=== PATIENT | male | born 1990 | race Caucasian/White ===

== ENCOUNTER 2017-10-03 18:22 | Emergency (ER) | payer BC, OTHER ==
--- NOTE | 2017-10-03 18:46 | ER Document Report ---
ED Medical Screen (RME) - General Chief Complaint: Leg Swelling Stated Complaint: SWOLLEN ANKLE Time Seen by Provider: 10/03/17 18:38 Notes: RME DISCLOSURE I have seen this patient as part of a Rapid Medical Evaluation and, if applicable, placed any initially appropriate orders. The patient will be seen and fully evaluated, including a full history and physical exam, by a provider ( in Main ED or Fast Track) when a room becomes available. 26-year-old male here with complaints of right foot ankle and calf swelling. He was seen in [place] for this and sent here for an ultrasound to rule out DVT. He has no prior history of DVT/PE or family history of same. Denies recent airplane travel or long car rides. Denies prior history of cancer. TRAVEL OUTSIDE OF THE [place] IN LAST 30 DAYS: No - Related Data Allergies/Adverse Reactions: No Known Allergies Allergy (Unverified 10/03/17 18:24) Physical Exam - Vital signs Vitals: Temp Pulse Resp BP Pulse Ox 97.9 F 80 14 146/79 H 98 10/03/17 18:29 10/03/17 18:29 10/03/17 18:29 10/03/17 18:29 10/03/17 18:29 Course - Vital Signs Vital signs: Temp Pulse Resp BP Pulse Ox 97.9 F 80 14 146/79 H 98 10/03/17 18:29 10/03/17 18:29 10/03/17 18:29 10/03/17 18:29 10/03/17 18:29
[2017-10-03 19:19] LABS: ABSOLUTE EOSINOPHILS # (AUTO) 0.1 10^3/uL (0.0-0.6); ABSOLUTE MONOCYTES (AUTO) 0.5 10^3/uL (0.1-1.4); HEMOGLOBIN 13.9 g/dL (13.5-17.0); TOTAL CELLS COUNTED % (AUTO) 100 %
[2017-10-03 19:22] LABS: ABSOLUTE NEUT (AUTO) 2.9 10^3/uL (1.7-8.2); BASOPHILS % (AUTO) 0.7 % (0-2); EOSINOPHILS % (AUTO) 2.1 % (0-6); HEMATOCRIT 41.3 % (37.9-51.0); LYMPHOCYTES % (AUTO) 22.1 % (13-45); MEAN CORPUSCULAR HGB CONC 33.7 g/dL (32.0-36.0); MEAN CORPUSCULAR VOLUME 83 fl (80-97); MONOCYTES % (AUTO) 10.2 % (3-13); PLATELET COUNT 331 10^3/uL (150-450); RED BLOOD COUNT 4.98 10^6/uL (4.35-5.55); RED CELL DISTRIBUTION WIDTH 13.8 % (11.5-14.0); SEGMENTED NEUTROPHILS % (AUTO) 64.9 % (42-78); WHITE BLOOD COUNT 4.5 10^3/uL (4.0-10.5)
[2017-10-03 19:37] LABS: ANION GAP 10 (5-19); BLOOD UREA NITROGEN 9 mg/dL (7-20); CALCIUM 9.7 mg/dL (8.4-10.2); CARBON DIOXIDE 27 mmol/L (22-30); CHLORIDE 103 mmol/L (98-107); GLUCOSE 95 mg/dL (75-110); POTASSIUM 4.2 mmol/L (3.6-5.0); SODIUM 140.2 mmol/L (137-145)
--- NOTE | 2017-10-03 20:36 | RADIOLOGY REPORT (SQ) ---
EXAM DESCRIPTION: VENOUS UNILATERAL LOWER COMPLETED DATE/TIME: 10/03/2017 8:25 pm REASON FOR STUDY: RLE swelling; eval DVT COMPARISON: None. TECHNIQUE: Dynamic and static hayes scale and color images acquired of the right leg venous system. S elected spectral images acquired with additional compression and augmentation maneuvers. The contrala teral common femoral vein and saphenofemoral junction were also imaged. Images stored on PACS. LIMITATIONS: None. FINDINGS: COMMON FEMORAL: Normal phasicity, compression and augmentation. No visualized echogenic ma terial on hayes scale. No defects on color images. FEMORAL: Normal compression and augmentation. No visualized echogenic material on hayes scale. No defe cts on color images. POPLITEAL: Normal compression, augmentation. No visualized echogenic material on hayes scale. No defec ts on color images. CALF VESSELS: Normal compression, augmentation. No visualized echogenic material on hayes scale. No de fects on color images. GSV and SSV: Normal compression, augmentation. No visualized echogenic material on hayes scale. No def ects on color images. ANY DEEP VENOUS INSUFFICIENCY: Not evaluated. ANY EVIDENCE OF POPLITEAL CYST: No. OTHER: No other significant finding. CONTRALATERAL COMMON FEMORAL VEIN AND SAPHENOFEMORAL JUNCTION: Normal phasicity, compression and augmentation. No visualized echogenic material on hayes scale. No de fects on color images. IMPRESSION: NO EVIDENCE DVT OR SVT IN THE RIGHT LEG. TECHNICAL DOCUMENTATION: JOB ID: [id number] [employer]- All Rights Reserved Reading location - IP/workstation name: [email or web address]
--- NOTE | 2017-10-03 20:48 | ER Document Report ---
ED Extremity Problem, Lower - General Chief Complaint: Leg Swelling Stated Complaint: SWOLLEN ANKLE Time Seen by Provider: 10/03/17 18:38 Mode of Arrival: Ambulatory Information source: Patient Notes: Patient is a 26-year-old male who presents with complaints of right ankle and right calf swelling 1 week. Patient states that he does have pain in his right lower extremity however the pain only occurs after working a 10 hour shift on his feet. Patient denies any recent travel, chest pain or shortness of breath. Denies any history of DVT or PE and denies any family history of any blood clots. Patient reports a medical history of rheumatoid arthritis for which he was recently started on methotrexate and symphony. TRAVEL OUTSIDE OF THE [place] IN LAST 30 DAYS: No - Related Data Allergies/Adverse Reactions: No Known Allergies Allergy (Unverified 10/03/17 18:24) Past Medical History - Social History Smoking Status: Current Every Day Smoker Chew tobacco use (# tins/day): No Frequency of alcohol use: None Drug Abuse: Marijuana Lives with: Family Family History: Reviewed & Not Pertinent Patient has suicidal ideation: No Patient has homicidal ideation: No Pulmonary Medical History: Reports: Hx Asthma - as a child Renal/ Medical History: Denies: Hx Peritoneal Dialysis Musculoskeltal Medical History: Reports Other - Rhumatoid arthritis Psychiatric Medical History: Reports: None Review of Systems - Review of Systems Constitutional: No symptoms reported EENT: No symptoms reported Cardiovascular: No symptoms reported Respiratory: No symptoms reported Gastrointestinal: No symptoms reported Genitourinary: No symptoms reported Male Genitourinary: No symptoms reported Musculoskeletal: See HPI, Leg swelling - Left, Ankle swelling - Left Skin: No symptoms reported Hematologic/Lymphatic: No symptoms reported Neurological/Psychological: No symptoms reported Physical Exam - Vital signs Vitals: Temp Pulse BP Pulse Ox 97.9 F 82 146/79 H 98 10/03/17 18:28 10/03/17 18:28 10/03/17 18:28 10/03/17 18:28 - Notes Notes: PHYSICAL EXAMINATION: GENERAL: Well-appearing, well-nourished and in no acute distress. HEAD: Atraumatic, normocephalic. EYES: Pupils equal round and reactive to light, extraocular movements intact, sclera anicteric, conjunctiva are normal. ENT: Nares patent, oropharynx clear without exudates. Moist mucous membranes. NECK: Normal range of motion, supple without lymphadenopathy LUNGS: Breath sounds clear to auscultation bilaterally and equal. No wheezes rales or rhonchi. HEART: Regular rate and rhythm without murmurs ABDOMEN: Soft, nontender, nondistended abdomen. No guarding, no rebound. No masses appreciated. Musculoskeletal: Normal range of motion, non-pitting edema to left lower extremity from foot to knee. Dorsalis pedis and anterior tibialis pulses present. No erythema, no warmth. No cyanosis. NEUROLOGICAL: Cranial nerves grossly intact. Normal speech, normal gait. Normal sensory, motor exams PSYCH: Normal mood, normal affect. SKIN: Warm, Dry, normal turgor, no rashes or lesions noted. Course - Re-evaluation Re-evalutation: Venous Doppler ordered by [facility] provider is negative for any deep vein thrombosis. Patient will follow up with primary care provider, Dr. Petty, in 1- 2 weeks. Instructed patient that if symptoms persist it may be necessary to have a repeat venous Doppler in approximately 2 weeks. Patient patient given strict return precautions to the emergency department to include chest pain, shortness of breath, increased right leg pain, swelling, erythema or temperature change to the lower extremity. - Vital Signs Vital signs: Temp Pulse Resp BP Pulse Ox 99.1 F 64 14 131/72 H 100 10/03/17 21:04 10/03/17 21:04 10/03/17 18:29 10/03/17 21:04 10/03/17 21:04 - Laboratory Result Diagrams: 10/03/17 19:02 10/03/17 19:02 Discharge - Discharge Clinical Impression: Swelling of right lower extremity Condition: Stable Disposition: HOME, SELF-CARE Additional Instructions: The venous doppler study performed in the emergency department today shows no DVT (deep vein thrombosis)/blood clot. If you continue to have pain and swelling in your leg, we would recommend that you follow-up with your primary care provider and have an additional Doppler studies done in 2 weeks. Please return to the emergency department if you develop any worsening pain, swelling, altered sensation, shortness of breath, chest pain or any other symptoms that are concerning to you. Referrals: DAVIDSON JORGE PA-C [Primary Care Provider] - Follow up as needed
[2017-10-03 21:05] VITALS: BP 131/72
== END 2017-10-03 21:14 | disposition home or self-care (01) ==
LOC: ER 18:22
DX: M79.89 Other specified soft tissue disorders (principal); M25.571 Pain in right ankle and joints of right foot; M79.604 Pain in right leg; F17.200 Nicotine dependence, unspecified, uncomplicated
CPT/HCPCS: 36415; 80048; 85025; 93971; 99284

== ENCOUNTER → 2017-11-26 | Outpatient (CLI) | payer BC ==
--- NOTE | 2017-11-26 15:25 | RADIOLOGY REPORT (SQ) ---
EXAM DESCRIPTION: KUB COMPLETED DATE/TIME: 11/26/2017 3:13 pm REASON FOR STUDY: RIGHT UPPER QUADRANT PAIN R10.11 RIGHT UPPER QUADRANT PAIN COMPARISON: None. NUMBER OF VIEWS: One view. TECHNIQUE: Supine radiographic image of the abdomen acquired. LIMITATIONS: None. FINDINGS: BOWEL GAS PATTERN: Normal bowel gas pattern. No dilated loops. CALCIFICATIONS: No suspicious calcifications. SOFT TISSUES: No gross mass or suggestion of organomegaly. HARDWARE: None in the abdomen. BONES: No acute fracture. No worrisome bone lesions. OTHER: No other significant finding. IMPRESSION: NO RADIOGRAPHIC EVIDENCE FOR ACUTE ABDOMINAL DISEASE. TECHNICAL DOCUMENTATION: JOB ID: [id number] [employer]- All Rights Reserved Reading location - IP/workstation name: [email or web address]
== END ==
LOC: RAD 14:48
PROVIDERS: ATTEND Physician Assistant
DX: R10.11 Right upper quadrant pain (principal)
CPT/HCPCS: 74018

== ENCOUNTER 2018-08-20 13:22 | Emergency (ER) | payer BC ==
--- NOTE | 2018-08-20 15:00 | ER Document Report ---
ED Medical Screen (RME) - General Chief Complaint: Leg Pain Stated Complaint: RIGHT LEG PAIN, REDNESS Time Seen by Provider: 08/20/18 14:41 Primary Care Provider: DAVIDSON JORGE PA-C [Primary Care Provider] - Follow up as needed Notes: Patient is a 27-year-old male with rheumatoid arthritis that presents to the emergency department for chief complaint of right leg swelling and redness. ROS: Other than noted above, the 12 point review of systems was reviewed with the patient and were negative, all pertinent findings are included in the HPI. PHYSICAL EXAMINATION: Vital signs reviewed. GENERAL: Well-appearing, well-nourished and in no acute distress. HEAD: Atraumatic, normocephalic. EYES: Pupils equal round extraocular movements intact, conjunctiva are normal. ENT: Nares patent NECK: Normal range of motion CV: Heart regular rate and rhythm LUNGS: No respiratory distress Musculoskeletal: Normal range of motion, right lower extremity is tender to palpate, there is edema noted as well as erythema medially. NEUROLOGICAL: Normal speech PSYCH: Normal mood, normal affect. MDM: Patient seen and examined for rapid initial assessment. Vital signs reviewed. A comprehensive ED assessment and evaluation of the patient, analysis of test results and completion of the medical decision making process will be conducted by additional ED providers. *Note is created using voice recognition software and may contain spelling, syntax or grammatical errors. TRAVEL OUTSIDE OF THE [place] IN LAST 30 DAYS: No - Related Data Allergies/Adverse Reactions: No Known Allergies Allergy (Unverified 10/03/17 18:24) Past Medical History Pulmonary Medical History: Reports: Hx Asthma - as a child Renal/ Medical History: Denies: Hx Peritoneal Dialysis Physical Exam - Vital signs Vitals: Temp Pulse Resp BP Pulse Ox 98.7 F 74 16 139/72 H 100 08/20/18 13:53 08/20/18 13:53 08/20/18 13:53 08/20/18 13:53 08/20/18 13:53 Course - Vital Signs Vital signs: Temp Pulse Resp BP Pulse Ox 98.7 F 74 16 139/72 H 100 08/20/18 13:53 08/20/18 13:53 08/20/18 13:53 08/20/18 13:53 08/20/18 13:53 Doctor's Discharge - Discharge Referrals: DAVIDSON JORGE PA-C [Primary Care Provider] - Follow up as needed
[2018-08-20 15:32] LABS: ABSOLUTE EOSINOPHILS # (AUTO) 0.2 10^3/uL (0.0-0.6); ABSOLUTE LYMPHOCYTES (AUTO) 0.8 10^3/uL (0.5-4.7); ABSOLUTE MONOCYTES (AUTO) 0.6 10^3/uL (0.1-1.4); ABSOLUTE NEUT (AUTO) 4.2 10^3/uL (1.7-8.2); BASOPHILS % (AUTO) 0.8 % (0-2); EOSINOPHILS % (AUTO) 4.2 % (0-6); HEMATOCRIT 37.6 % (37.9-51.0); HEMOGLOBIN 13.1 g/dL (13.5-17.0); LYMPHOCYTES % (AUTO) 13.4 % (13-45); MEAN CORPUSCULAR HGB CONC 34.8 g/dL (32.0-36.0); MEAN CORPUSCULAR VOLUME 80 fl (80-97); MONOCYTES % (AUTO) 10.3 % (3-13); PLATELET COUNT 380 10^3/uL (150-450); RED BLOOD COUNT 4.68 10^6/uL (4.35-5.55); RED CELL DISTRIBUTION WIDTH 13.5 % (11.5-14.0); SEGMENTED NEUTROPHILS % (AUTO) 71.3 % (42-78); TOTAL CELLS COUNTED % (AUTO) 100 %; WHITE BLOOD COUNT 5.9 10^3/uL (4.0-10.5)
[2018-08-20 15:54] LABS: ALANINE AMINOTRANSFERASE 29 U/L (21-72); ALBUMIN 3.9 g/dL (3.5-5.0); ALKALINE PHOSPHATASE 76 U/L (38-126); ANION GAP 5 (5-19); ASPARTATE AMINO TRANSFERASE 43 U/L (17-59); BILIRUBIN,DIRECT 0.2 mg/dL (0.0-0.4); BILIRUBIN,TOTAL 0.3 mg/dL (0.2-1.3); BLOOD UREA NITROGEN 9 mg/dL (7-20); CALCIUM 9.6 mg/dL (8.4-10.2); CARBON DIOXIDE 29 mmol/L (22-30); CHLORIDE 106 mmol/L (98-107); GLUCOSE 88 mg/dL (75-110); SODIUM 140.1 mmol/L (137-145)
--- NOTE | 2018-08-20 16:41 | RADIOLOGY REPORT (SQ) ---
EXAM DESCRIPTION: VENOUS UNILATERAL LOWER COMPLETED DATE/TIME: 08/20/2018 4:29 pm REASON FOR STUDY: pain, swelling rle COMPARISON: 10/03/2017 venous Doppler TECHNIQUE: Dynamic and static hayes scale and color images acquired of the right leg venous system. S elected spectral images acquired with additional compression and augmentation maneuvers. The contrala teral common femoral vein and saphenofemoral junction were also imaged. Images stored on PACS. LIMITATIONS: None. FINDINGS: RIGHT COMMON FEMORAL: Normal phasicity, compression and augmentation. No visualized echogenic material on g ray scale. No defects on color images. FEMORAL: Normal compression and augmentation. No visualized echogenic material on hayes scale. No defe cts on color images. POPLITEAL: Normal compression, augmentation. No visualized echogenic material on hayes scale. No defec ts on color images. CALF VESSELS: Normal compression, augmentation. No visualized echogenic material on hayes scale. No de fects on color images. GSV and SSV: Normal compression, augmentation. No visualized echogenic material on hayes scale. No def ects on color images. ANY DEEP VENOUS INSUFFICIENCY: Not evaluated. ANY EVIDENCE OF POPLITEAL CYST: No. OTHER: No other significant finding. LEFT COMMON FEMORAL VEIN AND SAPHENOFEMORAL JUNCTION: Normal phasicity, compression and augmentation. No visualized echogenic material on hayes scale. No de fects on color images. IMPRESSION: NO EVIDENCE OF DVT OR SVT IN THE RIGHT LEG. TECHNICAL DOCUMENTATION: JOB ID: [id number] [employer]- All Rights Reserved Reading location - IP/workstation name: [email or web address]
[2018-08-20] MEDS ORDERED: CEPHALEXIN 500 MG CAPSULE PO ONE (16:59)
[2018-08-20] MEDS ORDERED: SULFAMETHOXAZOLE/TRIMETHOPRIM 800-160 MG TABLET PO ONE (16:59)
--- NOTE | 2018-08-20 17:00 | ER Document Report ---
ED General - General Chief Complaint: Leg Pain Stated Complaint: RIGHT LEG PAIN, REDNESS Time Seen by Provider: 08/20/18 14:41 Primary Care Provider: DAVIDSON JORGE PA-C [Primary Care Provider] - Follow up as needed Mode of Arrival: Ambulatory Information source: Patient, [facility] Records Notes: 27-year-old male with rheumatoid arthritis presents with complaint of right lo wer extremity pain and redness. Patient states that he noticed a small area of redness approximately 1 month ago. He states that over the last week the redness progressed and the leg became more swollen. He denies any history of trauma, previous history of PE, DVT, fever, chills, nausea, vomiting, abdominal pain. TRAVEL OUTSIDE OF THE [place] IN LAST 30 DAYS: No - HPI Onset: Last week Onset/Duration: Gradual, Persistent, Worse Quality of pain: Throbbing Severity: Moderate Associated symptoms: Body/muscle aches. denies: Chest pain, Nonproductive cough, Productive cough, Fever, Nausea, Vomiting, Shortness of breath, Sweating Exacerbated by: Walking Relieved by: Denies Similar symptoms previously: No Recently seen / treated by doctor: No - Related Data Allergies/Adverse Reactions: No Known Allergies Allergy (Unverified 10/03/17 18:24) Past Medical History - General Information source: Patient, [facility] Records - Social History Smoking Status: Never Smoker Frequency of alcohol use: Occasional Drug Abuse: Marijuana Lives with: Family Family History: Reviewed & Not Pertinent Patient has suicidal ideation: No Patient has homicidal ideation: No Pulmonary Medical History: Reports: Hx Asthma - as a child Renal/ Medical History: Denies: Hx Peritoneal Dialysis Musculoskeletal Medical History: Reports Other - Rheumatoid arthritis Review of Systems - Review of Systems Constitutional: denies: Fever, Recent illness EENT: denies: Blurred vision, Sinus pressure Cardiovascular: denies: Chest pain, Palpitations, Dizziness Respiratory: denies: Cough, Short of breath Gastrointestinal: denies: Abdominal pain, Poor appetite, Poor fluid intake, Rectal bleeding Genitourinary: denies: Dysuria, Flank pain Male Genitourinary: No symptoms reported Musculoskeletal: Joint pain - Chronic, Ankle swelling. denies: Back pain Skin: Rash Hematologic/Lymphatic: No symptoms reported Neurological/Psychological: denies: Headaches -: Yes All other systems reviewed and negative Physical Exam - Vital signs Vitals: Temp Pulse Resp BP Pulse Ox 98.7 F 74 16 139/72 H 100 08/20/18 13:53 08/20/18 13:53 08/20/18 13:53 08/20/18 13:53 08/20/18 13:53 - Notes Notes: PHYSICAL EXAMINATION: GENERAL: Well-appearing, well-nourished and in no acute distress. HEAD: Atraumatic, normocephalic. EYES: Pupils equal round and reactive to light, extraocular movements intact, sclera anicteric, conjunctiva are normal. ENT: Nares patent, oropharynx clear without exudates. Moist mucous membranes. NECK: Normal range of motion, supple without lymphadenopathy LUNGS: Breath sounds clear to auscultation bilaterally and equal. No wheezes rales or rhonchi. HEART: Regular rate and rhythm without murmurs ABDOMEN: Soft, nontender, nondistended abdomen. No guarding, no rebound. No masses appreciated. Musculoskeletal: Normal range of motion, no pitting or edema. No cyanosis. Right lower extremity-mild swelling NEUROLOGICAL: Cranial nerves grossly intact. Normal speech, normal gait. Normal sensory, motor exams PSYCH: Normal mood, normal affect. SKIN: Warm, Dry, normal turgor, no rashes or lesions noted. Course - Re-evaluation Re-evalutation: Laboratory 08/20/18 08/20/18 15:18 15:18 WBC 5.9 RBC 4.68 Hgb 13.1 L Hct 37.6 L MCV 80 MCH 28.0 MCHC 34.8 RDW 13.5 Plt Count 380 Seg Neutrophils % 71.3 Lymphocytes % 13.4 Monocytes % 10.3 Eosinophils % 4.2 Basophils % 0.8 Absolute Neutrophils 4.2 Absolute Lymphocytes 0.8 Absolute Monocytes 0.6 Absolute Eosinophils 0.2 Absolute Basophils 0.0 Sodium 140.1 Potassium 5.0 Chloride 106 Carbon Dioxide 29 Anion Gap 5 BUN 9 Creatinine 0.59 Est GFR ( Amer) > 60 Est GFR (Non-Af Amer) > 60 Glucose 88 Calcium 9.6 Total Bilirubin 0.3 Direct Bilirubin 0.2 Neonat Total Bilirubin Not Reportable Neonat Direct Bilirubin Not Reportable Neonat Indirect Bili Not Reportable AST 43 ALT 29 Alkaline Phosphatase 76 Total Protein 8.0 Albumin 3.9 Venous Doppler Study 08/20/18 14:59 IMPRESSION: NO EVIDENCE OF DVT OR SVT IN THE RIGHT LEG. Venous Doppler Study 08/20/18 14:59 IMPRESSION: NO EVIDENCE OF DVT OR SVT IN THE RIGHT LEG. Temp Pulse Resp BP Pulse Ox 98.5 F 72 16 135/74 H 99 08/20/18 17:50 08/20/18 17:50 08/20/18 17:50 08/20/18 17:50 08/20/18 17:50 08/20/18 18:11 Patient presents with symptoms most consistent with an acute cellulitis. Vitals within normal limits. Patient does not meet sepsis criteria is overall very well in appearance. Exam, history and ultrasound are not consistent with DVT. Patient will be started on coverage for both staph and strep. At this time will discharge with return precautions and follow-up recommendations. Verbal discharge instructions given a the bedside and opportunity for questions given. Medication warnings reviewed. Patient is in agreement with this plan and has verbalized understanding of return precautions and the need for primary care follow-up in the next 24-72 hours. - Vital Signs Vital signs: Temp Pulse Resp BP Pulse Ox 98.5 F 72 16 135/74 H 99 08/20/18 17:50 08/20/18 17:50 08/20/18 17:50 08/20/18 17:50 08/20/18 17:50 - Laboratory Result Diagrams: 08/20/18 15:18 08/20/18 15:18 Laboratory results interpreted by me: 08/20/18 15:18 Hgb 13.1 L Hct 37.6 L - Diagnostic Test Radiology reviewed: Image reviewed, Reports reviewed Discharge - Discharge Clinical Impression: Cellulitis of right lower extremity, Elevated blood pressure reading, History of rheumatoid arthritis Condition: Good Disposition: HOME, SELF-CARE Instructions: Cellulitis ([facility]) Additional Instructions: The rash is likely due to infection of your skin. You need to take the antibiotics as prescribed. Do not stop even if the rash goes away until you have completed all the antibiotics. The area of redness was traced out here in the emergency department with a marking pen. You need to return to emergency department if the redness spreads outside of this area by more than 2 cm in any direction. You should also return if you develop fevers with temperature greater than 101, persistent vomiting, worsening pain, or have any other symptoms that are concerning to you. Follow up with your [id number] hours for further care or return to the ED IMMEDIATELY if symptoms worsen or you have any concerns. If you cannot afford to follow up with your primary care physician a list of low cost clinics have been provided at the end of your discharge papers as well. Most prescribed medications have multiple side effects. The safest thing to do is when filling your prescription speak to your pharmacist regarding possible interactions with your normal home medications and over the counter medications such as Ibuprofen, Tylenol, Benadryl. If you experience any symptoms that cause you discomfort or concern you should discontinue the medication immediately and return to the emergency room or call your primary care physician. Prescriptions: Cephalexin Monohydrate [Keflex 500 mg Capsule] 500 mg PO BID #14 capsule Sulfamethoxazole/Trimethoprim [Bactrim Ds Tablet] 1 each PO BID 7 Days #14 tablet Forms: Elevated Blood Pressure, Return to Work Referrals: DAVIDSON JORGE PA-C [Primary Care Provider] - Follow up as needed
[2018-08-20 17:51] VITALS: BP 135/74
== END 2018-08-20 17:49 | disposition home or self-care (01) ==
LOC: ER 13:22
DX: L03.115 Cellulitis of right lower limb (principal); R03.0 Elevated blood-pressure reading, without diagnosis of hypertension; M79.604 Pain in right leg; M79.10 Myalgia, unspecified site
CPT/HCPCS: 36415; 80053; 85025; 93971; 99284

== ENCOUNTER 2019-09-05 20:41 | Emergency (ER) | payer OTHER, BC ==
[2019-09-05 21:05] VITALS: BP 131/77
[2019-09-05] MEDS ORDERED: DIPH/PERTUSS(ACELL)/TETANUS VAC/PF 0.5 ML SYR (>=10YO) IM ONE (22:15)
--- NOTE | 2019-09-05 22:15 | ER Document Report ---
HPI - HPI Time Seen by Provider: 09/05/19 22:05 Pain Level: 1 Notes: Patient is a 28-year-old male no significant past medical history and no drug allergies who presents complaining of dog bite single puncture wound to his right calf by a friend's dog that has immunizations reported to be up-to-date. He is able ambulate without difficulty. He does have some bloody leaky drainage. Denies drug allergies. No other concerns or complaints. Denies any headache, fever, neck pain, URI, sore throat, chest pain, palpitations, syncope, cough, shortness of breath, wheeze, dyspnea, abdominal pain, nausea/vomiting/diarrhea, urinary retention, dysuria, hematuria, loss of control of bowel or bladder, numbness/tingling, saddle anesthesia, muscle paralysis/weakness, or rash. - ROS Systems Reviewed and Negative: Yes All other systems reviewed and negative Past Medical History - Social History Smoking Status: Former Smoker Family History: Reviewed & Not Pertinent Patient has suicidal ideation: No Patient has homicidal ideation: No Pulmonary Medical History: Reports: Hx Asthma - as a child Renal/ Medical History: Denies: Hx Peritoneal Dialysis Vertical Provider Document - CONSTITUTIONAL Agree With Documented VS: Yes Notes: PHYSICAL EXAMINATION: GENERAL: Well-appearing, well-nourished and in no acute distress. LUNGS: Breath sounds clear to auscultation bilaterally and equal. No wheezes rales or rhonchi. HEART: Regular rate and rhythm without murmurs, rubs, gallops. Musculoskeletal: Rt LE: FROM to passive/active. Strength 5+/5. Extremities: No cyanosis, clubbing, or edema b/l. Peripheral pulses 2+. Capillary refill less than 3 seconds. NEUROLOGICAL: Normal speech, normal gait. Normal sensory, motor exams PSYCH: Normal mood, normal affect. SKIN: small puncture wound noted rt calf noted. No obvious foreign body. - INFECTION CONTROL TRAVEL OUTSIDE OF THE [place] IN LAST 30 DAYS: No Course - Re-evaluation Re-evalutation: 09/05/19 22:12 Patient is an afebrile, well-hydrated, 28-year-old male who presents with a dog bite puncture to the right calf. Vitals are except without significant tachycardia, tachypnea, hypoxia. PE is otherwise unremarkable for any neurovascular compromise, obvious tendon/leg rupture, obvious fracture/dislocation, septic joint, retained foreign body. Wound was thoroughly irrigated and cleansed. Wound dressing placed and wound instructions reviewed. Tetanus was updated today. No further work-up warranted. Low suspicion for any other systemic or emergent condition at this time. I will send him home with a prescription for Augmentin. Recheck with your PCM in 3 to 5 days. Return to the ED with any other worsening/concerning symptoms. We did review rabies vaccination series and he is in agreement with holding off at this time. Dog can be monitored via his friend. Patient is in agreement with plan. - Vital Signs Vital signs: Temp Pulse Resp BP Pulse Ox 98.8 F 72 16 131/77 H 09/05/19 21:02 09/05/19 21:02 09/05/19 21:02 09/05/19 21:02 Discharge - Discharge Clinical Impression: Dog bite of right lower leg Qualifiers: Encounter type: initial encounter Qualified Code(s): S81.851A - Open bite, right lower leg, initial encounter; W54.0XXA - Bitten by dog, initial encounter Condition: Stable Disposition: HOME, SELF-CARE Additional Instructions: Keep the skin clean Wash with soap and water Tylenol/ibuprofen if needed Triple antibiotic ointment daily Take medication as directed Monitor for any worsening symptoms Recheck with your PCM in 3-5 days Return to the ED with any worsening symptoms and/or development of fever, headache, chest pain, palpitations, syncope, shortness of breath, trouble breathing, abdominal pain, n/v/d, abscess, purulent discharge, red streaks, worsening swelling, or other worsening symptoms that are concerning to you. Prescriptions: Amoxicillin/Potassium Clav [Augmentin 875-125 Tablet] 1 tab PO BID #20 tab Forms: Elevated Blood Pressure Referrals: DAVIDSON JORGE PA-C [Primary Care Provider] - Follow up as needed [facility] [Provider Group] - Follow up as needed
== END 2019-09-05 23:01 | disposition home or self-care (01) ==
LOC: ER 20:41
DX: S81.851A Open bite, right lower leg, initial encounter (principal); W54.0XXA Bitten by dog, initial encounter; Z23 Encounter for immunization
CPT/HCPCS: 90715; 99283